=== PATIENT | female | born 1995 | race Caucasian/White ===

== ENCOUNTER 2017-10-07 00:11 | Emergency (ER) | payer MEDICAID ==
[~2017-10-07] VITALS: Ht 170.2 cm; Wt 83.2 kg
[~2017-10-07 00:11] MED LIST: ATARAX 10MG10 MG/TAB PO; CALCIUM 600MG+D1 TAB PO; CITRANATAL HARM1 SG1; DICLEGIS; FERROUS SULFATE65 MG PO; MIRANA; MONODOX100 PO; MOTRIN 800800 MG/TAB PO; PERCOCET 325 MG1 TA2 PO; PHENERGAN 25 TA25 MG PO; PRENATAL1 TA1 PO; PROBIOTIC ACID1 EAC3 PO; ZOFRAN 4MG T4 MG/TAB PO; ZOFRAN8 MG PO
[2017-10-07 00:17] VITALS: BP 131/68; TEMP 99
[2017-10-07 01:17] LABS: COLLECTION METHOD CLEAN CATCH
[2017-10-07 01:22] LABS: PH 6 (5-8); SQUAMOUS EPITHELIAL None Seen /hpf; URINE APPEARANCE Clear; URINE BACTERIA None Seen /hpf; URINE BILIRUBIN Negative (NEGATIVE); URINE BLOOD 2+ (NEGATIVE); URINE COLOR Straw; URINE GLUCOSE Negative (NEGATIVE); URINE KETONE Negative (NEGATIVE); URINE LEUKOCYTE ESTERASE Negative (NEGATIVE); URINE NITRATE Negative (NEGATIVE); URINE PROTEIN(semi-quant) Negative (NEGATIVE); URINE RBC 0-2 /hpf; URINE UROBILINOGEN Negative (NEGATIVE)
[2017-10-07 01:24] LABS: BASO % 0.4 % (0.0-2.0); EOS # 0.1 (0.0-0.7); EOS % 0.9 % (0-4.0); GRAN # 5.2 (1.4-6.5); GRAN % 69.4 % (42.2-75.2); HEMOGLOBIN 11.7 g/dl (12.5-16.0); LYMPH # 1.6 (1.2-3.4); LYMPH % 20.7 % (20.0-51.0); MEAN CELL VOLUME 82 fl (80.0-100.0); MEAN CORPUSCULAR HEMOGLOBIN 28 pg (27.0-31.0); MEAN CORPUSCULAR HGB CONC 34 g/dl (33.0-37.0); MEAN PLATELET VOLUME 9.6 fl (7.4-10.4); MONO # 0.6 (0.1-0.6); MONO % 8.2 % (1.7-9.3); PLATELET COUNT 227 K/mm3 (130-400); RED BLOOD COUNT 4.15 M/mm3 (4.10-5.30); REDCELL DISTRIBUTION WIDTH-CV 12.6 % (11.5-14.5)
[2017-10-07 01:25] LABS: HEMATOCRIT 34.2 % (37.0-47.0)
[2017-10-07 03:55] VITALS: PULSE 92
== END 2017-10-07 03:56 | disposition home or self-care (01) ==
LOC: COL.ER 00:11
PROVIDERS: Physician Assistant
DX: O46.92 Antepartum hemorrhage, unspecified, second trimester (principal); Z3A.14 14 weeks gestation of pregnancy
CPT/HCPCS: J2791

== ENCOUNTER → 2017-10-10 | Outpatient (CLI) | payer MEDICAID | LOC: COL.RAD 12:00 | DX: O26.852 Spotting complicating pregnancy, second trimester (principal); Z3A.15 15 weeks gestation of pregnancy ==

== ENCOUNTER → 2018-05-31 | Outpatient (REF) ==
[2018-05-31 17:00] LABS: THYROID STIMULATING HORMONE 0.798 uIU/mL (0.465-4.680)
== END ==
LOC: ZLAB.WCH 15:54
PROVIDERS: Family Medicine
DX: Z01.89 Encounter for other specified special examinations (principal)